=== PATIENT | male | born 1960 | race Caucasian/White ===

== ENCOUNTER → 2017-04-18 | Outpatient (CLI) | payer OTHER ==
--- NOTE | 2017-04-18 14:55 | DIAGNOSTIC IMAGING REPORT ---
LEFT SHOULDER MRI HISTORY: Left shoulder pain. TECHNIQUE: Multiplanar multisequence MRI of the left shoulder was performed without contrast. COMPARISON STUDY: None. FINDINGS: AC joint: Severe AC joint arthropathy demonstrated by joint space narrowing with [id number] articulation, subchondral edema, and large marginal osteophytes. Rotator cuff: The subscapularis and teres minor tendons are intact. Mild edema surrounding the supraspinatus muscle. Partial undersurface tears involving the supraspinatus and infraspinatus tendons. There may be a small focal full-thickness tear of the distal supraspinatus tendon measuring 5 mm. Trace fluid within the subacromial/subdeltoid bursa. Mild fatty atrophy of the supraspinatus and infraspinatus muscles. Labrum: Abnormal signal throughout the superior labrum consistent with a SLAP tear. Biceps: Increased T2 signal in thickening within the proximal long head of the biceps tendon. This is consistent with a tendinopathy. Bones: No fracture dislocation. Mild subchondral marrow edema at the lateral humeral head. This likely due to chronic change. Cartilage: Cartilage spaces are intact. Miscellaneous: No significant joint effusion. IMPRESSION: 1. Partial undersurface tears involving the supra spinous and infraspinatus tendon. There may be a focal 5 mm full-thickness tear at the distal supraspinatus tendon. 2. SLAP tear. 3. Biceps tendinopathy. 4. Severe AC joint arthropathy. Electronically signed by: Elia Hyde M.D. 04/18/2017 2:54 PM Dictated Date/Time: 04/18/2017 2:45 PM
== END | disposition home or self-care (01) ==
LOC: C.MRI 13:40
PROVIDERS: ATTEND Physician Assistant
DX: M25.512 Pain in left shoulder (principal); S46.012A Strain of muscle(s) and tendon(s) of the rotator cuff of left shoulder, initial encounter; S43.432A Superior glenoid labrum lesion of left shoulder, initial encounter; M75.22 Bicipital tendinitis, left shoulder; M19.012 Primary osteoarthritis, left shoulder

== ENCOUNTER 2022-02-11 11:03 | Inpatient (IN) ==
--- NOTE | 2022-01-24 09:28 | PAT Medication Instructions ---
Medication Instructions Date of Service January 24, 2022 Home Medications Beet Root 1,000 mg PO QAM albuterol sulfate 90 mcg/actuation aerosol inhaler 1 inh INHALATION QID PRN amlodipine 5 mg tablet 5 mg PO QAM ascorbic acid (vitamin C) 1,000 mg capsule,extended release 1 cap PO BID cholecalciferol (vitamin D3) 125 mcg (5,000 unit) tablet (Vitamin D3) 125 mcg PO HS cyanocobalamin (vitamin B-12) 5,000 mcg capsule 5,000 mcg PO QAM fluticasone furoate 100 mcg-vilanterol 25 mcg/dose inhalation powder (Breo Ellipta) 1 inh INHALATION DAILY PRN hydrochlorothiazide 25 mg tablet 25 mg PO QAM linagliptin 5 mg tablet (Tradjenta) 5 mg PO QAM losartan 25 mg tablet 25 mg PO QAM montelukast 10 mg tablet (Singulair) 10 mg PO HS omeprazole 20 mg capsule,delayed release 20 mg PO QAM turmeric 400 mg capsule 400 mg PO HS zinc 50 mg capsule 50 mg PO HS STOP taking 2 weeks before surgery Beet Root 1,000 mg PO QAM turmeric 400 mg capsule 400 mg PO HS DO NOT take the morning of surgery ascorbic acid (vitamin C) 1,000 mg capsule,extended release 1 cap PO BID cyanocobalamin (vitamin B-12) 5,000 mcg capsule 5,000 mcg PO QAM hydrochlorothiazide 25 mg tablet 25 mg PO QAM linagliptin 5 mg tablet (Tradjenta) 5 mg PO QAM losartan 25 mg tablet 25 mg PO QAM Take morning of surgery With a small sip of water, OTHERWISE NOTHING TO EAT OR DRINK AFTER MIDNIGHT: albuterol sulfate 90 mcg/actuation aerosol inhaler 1 inh INHALATION QID PRN(use if needed; please bring with you to hospital day of surgery if possible) amlodipine 5 mg tablet 5 mg PO QAM fluticasone furoate 100 mcg-vilanterol 25 mcg/dose inhalation powder (Breo Ellipta) 1 inh INHALATION DAILY PRN(if needed) omeprazole 20 mg capsule,delayed release 20 mg PO QAM Take evening before surgery albuterol sulfate 90 mcg/actuation aerosol inhaler 1 inh INHALATION QID PRN(if needed) ascorbic acid (vitamin C) 1,000 mg capsule,extended release 1 cap PO BID cholecalciferol (vitamin D3) 125 mcg (5,000 unit) tablet (Vitamin D3) 125 mcg PO HS montelukast 10 mg tablet (Singulair) 10 mg PO HS zinc 50 mg capsule 50 mg PO HS Other Notes If you have any questions please call us at [phone] or [phone] or or [phone]
--- NOTE | 2022-01-28 14:03 | Anesthesiology Consultation ---
Date of Service January 28, 2022 Assessment & Plan (1) Encounter for pre-operative examination: Chart Review Chart Review: Acceptable Risk for Surgery (pending surgeon ordered PCP clearance, stress test if available and preop Covid testing results ) and Patient seen in Pre Admission Testing -Awaiting surgeon ordered PCP clearance scheduled 01/31/22 -Attempting to get previous stress test - Check BSG AM DOS Per PAT appt on 01/28/22, patient denies any recent travel or large group activities. No known Covid positive exposures or Covid related symptoms. No known Covid infection in the past 90 days. Pt is vaccinated for Covid. Preop Covid testing scheduled 02/07/22 = will await results. Educated on importance of self quarantining, social distancing and wearing mask in public for the patient one week prior to surgery and after Covid testing done Teaching & Discussion Pre-Anesthesia Teaching/Discussion Notes: Instructed NPO after midnight before surgery,except medications with 15 cc of water. Medication instructions provided according to the PAT guidelines. History Surgery Operation Date: 02/11/22 07:45 Proposed Procedures p L2-L4 Decompression and Fusion, L4-S1 Hardware Removal - Javed Yuan, Height/Weight Height: 5 ft 9 in Weight: 79.7 kg Allergies Allergy/AdvReac Type Severity Reaction Status Date / Time No Known Allergies Allergy Verified 01/23/22 14:05 Medications Home Medications Medication Instructions Recorded Confirmed Last Taken Beet Root 1,000 mg PO QAM 01/23/22 01/23/22 Unknown albuterol sulfate 90 mcg/actuation 1 inh INHALATION QID PRN 01/23/22 01/23/22 Unknown aerosol inhaler amlodipine 5 mg tablet 5 mg PO QAM 01/23/22 01/23/22 Unknown ascorbic acid (vitamin C) 1,000 mg 1 cap PO BID 01/23/22 01/23/22 Unknown capsule,extended release cholecalciferol (vitamin D3) 125 125 mcg PO HS 01/23/22 01/23/22 Unknown mcg (5,000 unit) tablet (Vitamin D3) cyanocobalamin (vitamin B-12) 5,000 mcg PO QAM 01/23/22 01/23/22 Unknown 5,000 mcg capsule fluticasone furoate 100 1 inh INHALATION DAILY PRN 01/23/22 01/23/22 Unknown mcg-vilanterol 25 mcg/dose inhalation powder (Breo Ellipta) hydrochlorothiazide 25 mg tablet 25 mg PO QAM 01/23/22 01/23/22 Unknown linagliptin 5 mg tablet (Tradjenta) 5 mg PO QAM 01/23/22 01/23/22 Unknown losartan 25 mg tablet 25 mg PO QAM 01/23/22 01/23/22 Unknown montelukast 10 mg tablet 10 mg PO HS 01/23/22 01/23/22 Unknown (Singulair) omeprazole 20 mg capsule,delayed 20 mg PO QAM 01/23/22 01/23/22 Unknown release turmeric 400 mg capsule 400 mg PO HS 01/23/22 01/23/22 Unknown zinc 50 mg capsule 50 mg PO HS 01/23/22 01/23/22 Unknown Past Medical History Medical History (Updated 01/29/22 @ 09:49 by Danika Augustine PA-C) Arthritis Asthma LAST USED RESCUE INHALER>UNKNOWN "BEEN SO LONG" Breathing stable Diabetes mellitus, type 2 Stable per patient- BSG usually 100-125 (only checks occ) GERD (gastroesophageal reflux disease) Well controlled and stable History of abnormal electrocardiogram Hx of per patient- had subsequent negative stress test per patient No issues with 01/29/22 PAT EKG Hx of migraines Hypertension 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 Exercise / Class Metabolic Activity II 4-5 Yardwork/Stairs/Walk up hill (one flight of stairs- no chest pain or SOB ) Past Family History Family History Other No family history of adverse response to anesthesia Past Surgical History Surgical History Biceps tendon tear LEFT REPAIRED Fusion of spine LUMBAR H/O left inguinal hernia repair H/O lumbar discectomy H/O right inguinal hernia repair H/O shoulder surgery RT H/O umbilical hernia repair History of colonoscopy History of esophagogastroduodenoscopy (EGD) History of tonsillectomy and adenoidectomy History of tooth extraction Nausea and vomiting after administration of anesthetic agent Past Anesthesia History No Hx of Anesthesia Complications (with exception to PONV ) and No Family Hx of Anesthesia Complications History of PONV No Hx of Motion Sickness and History of PONV (does well with scopolamine patch (ordered scop patch for AM DOS)) Social History Smoking Status: Former smoker tobacco type: cigarettes and smokeless tobacco Do You Dip or Chew Tobacco: No (QUIT 2 YEARS AGO) Smoking End Date: A FEW YEARS AGO Hx Alcohol Use: Yes Alcohol type: hard liquor alcohol intake frequency: a few times a week substance use type: does not use Review of Systems Patient denies chest pain, shortness of breath, dyspnea on exertion, cough, wheezing, palpitations. No hx of seizures, stroke, DE, apnea/snoring. No hx of blood clots or blood transfusions Physical Exam Vital Signs VITALS BP 122/72 P 80 TEMP 98.0 SP02 96% RESP 16 Constitutional no acute distress ENMT Mouth: no TMJ clicking Thyromental Distance: > or= 3.5 Finger Breadths (3.5) Mallampati Class: I Full dentures on top Partial denture on bottom Neck + limited neck extension (minimal ) Respiratory normal respiratory effort; no respiratory distress Auscultation: lungs clear to auscultation bilaterally; no wheezes Breath mildly decreased throughout Cardiovascular Rate/Rhythm: regular rate and regular rhythm Heart Sounds: no murmur Vessels: no carotid bruit Musculoskeletal Spine: + pain with cervical ROM (minimal ) Extremities: extremities normal to inspection Psychiatric Orientation: alert Lab Results Anesthesia Preop Results Results Anesthesia Widget: WBC 10.73 K/uL (4.8-10.8) 01/28/22 Hgb 15.0 g/dL (14.0-18.0) 01/28/22 Hct 44.9 % (42-52) 01/28/22 Plt 263 K/uL (130-400) 01/28/22 Na 139 mmol/L (136-145) 01/28/22 K 3.7 mmol/L (3.5-5.1) 01/28/22 Cl 101 mmol/L (98-107) 01/28/22 CO2 31 mmol/L (21-32) 01/28/22 BUN 11 mg/dl (6-23) 01/28/22 Creat 0.88 mg/dl (0.6-1.4) 01/28/22 Glucose Level 128 mg/dl (70-99(Fasting)) H 01/28/22 PT 11.3 Seconds (9.0-12.0) 01/28/22 PTT 26.1 Seconds (21.0-31.0) 01/28/22 INR 1.1 (0.9-1.1) 01/28/22 HA1c 6.8 % (4.5-5.6) H 01/28/22 Urine Color Yellow 01/28/22 Urine Appearance Clear (Clear) 01/28/22 Urine pH 7.0 (4.5-7.5) 01/28/22 Urine Specific [place] 1.015 (1.000-1.030) 01/28/22 Urine Protein Negative (Negative) 01/28/22 Urine Glucose (UA) Negative (Negative) 01/28/22 Urine Ketones Negative (Negative) 01/28/22 Urine Blood Negative (Negative) 01/28/22 Urine Nitrite Negative (Negative) 01/28/22 Urine Bilirubin Negative (Negative) 01/28/22 Urine Urobilinogen Negative (Negative) 01/28/22 Urine Leukocyte Esterase 2+ (Negative) H 01/28/22 Urine WBC (Auto) 1-5 /hpf (0-5) 01/28/22 Urine RBC (Auto) 0-4 /hpf (0-4) 01/28/22 Urine Hyaline Casts (Auto) 0 /lpf (0-5) 01/28/22 Urine Epithelial Cells (Auto) 5-10 /lpf (0-5) H 01/28/22 Urine Bacteria (Auto) Negative (Negative) 01/28/22 Blood Type A Positive 01/28/22 Antibody Screen NEGATIVE 01/28/22 Testing Electrocardiogram Date: 01/28/22 Findings: + NSR @ (77bpm ) Normal EKG per cardio Chest X-Ray Date: 01/28/22 Findings: + NAD FINDINGS: There may be mild lung hyperexpansion with flattening of the hemidiaphragms. Lungs are clear. There is no pneumothorax or pleural effusion. Cardiac size is normal. Mediastinal contours are normal. There is no evidence for pulmonary edema.
[~2022-02-11 11:03] MED LIST: ACETAMINOPHEN 500 MG TAB PO SCH; CeleBREX 200 MG CAP PO SCH; GABAPENTIN 600 MG DOSE PO SCH; LR 15ML/HR IV SCH; MIDAZOLAM HCL 1 MG/ML 2ML VIAL ONE; SCOPOLAMINE 1 MG TDSY TD ONE; ceFAZolin 2000MG 2,000 MG/15 ML SYR IV SCH; fentaNYL citrate 100 MCG/2 ML VIAL ONE
[2022-02-11] MEDS ORDERED: SCOPOLAMINE 1 MG TDSY TD ONE (11:18)
[2022-02-11] MEDS ORDERED: ONDANSETRON INJ 2 MG/ML 2 ML VIAL IV PRN ×2 (11:46→16:56)
[2022-02-11] MEDS ORDERED: ePHEDrine sulfate 50 MG/ML AMP IV PRN (11:46)
[2022-02-11] MEDS ORDERED: ATROPINE SULFATE 0.1 MG/ML 10ML SYR IV PRN (11:46)
[2022-02-11] MEDS ORDERED: HYDROmorphone INJ 1 MG/ML SYRINGE IV PRN ×2 (11:46→16:56)
--- NOTE | 2022-02-11 11:59 | History & Physical Bridge Note ---
Date of Service February 11, 2022 History & Physical Bridge Note I have examined the patient, reviewed the History & Physical and in the interval since the performance of the History & Physical I have noted the following changes of clinical significance: no changes noted
--- NOTE | 2022-02-11 12:01 | History & Physical Report ---
Date of Service February 11, 2022 Assessment & Plan (1) Neurogenic claudication due to lumbar spinal stenosis: Plan: L2-L4 decompression and fusion, L4-S1 hardware removal History of Present Illness Chief Complaint: Back and leg pain Primary Care Provider: Bennett Vo MD This is a 61-year-old male who presents with chronic persistent back and leg pain. Failing course of nonoperative care is here for surgical invention. Allergies Allergy/AdvReac Type Severity Reaction Status Date / Time No Known Allergies Allergy Verified 02/11/22 11:26 Home Medications Medication Instructions Recorded Confirmed Type Beet Root 1,000 mg PO QAM 01/23/22 02/11/22 History albuterol sulfate 90 mcg/actuation 1 inh INHALATION QID PRN 01/23/22 02/11/22 History aerosol inhaler amlodipine 5 mg tablet (Norvasc) 5 mg PO QAM 01/23/22 02/11/22 History ascorbic acid (vitamin C) 1,000 mg 1 cap PO BID 01/23/22 02/11/22 History capsule,extended release cholecalciferol (vitamin D3) 125 125 mcg PO HS 01/23/22 02/11/22 History mcg (5,000 unit) tablet (Vitamin D3) cyanocobalamin (vitamin B-12) 5,000 mcg PO QAM 01/23/22 02/11/22 History 5,000 mcg capsule fluticasone furoate 100 1 inh INHALATION DAILY PRN 01/23/22 02/11/22 History mcg-vilanterol 25 mcg/dose inhalation powder (Breo Ellipta) hydrochlorothiazide 25 mg tablet 25 mg PO QAM 01/23/22 02/11/22 History linagliptin 5 mg tablet (Tradjenta) 5 mg PO QAM 01/23/22 02/11/22 History losartan 25 mg tablet 25 mg PO QAM 01/23/22 02/11/22 History montelukast 10 mg tablet 10 mg PO HS 01/23/22 02/11/22 History (Singulair) omeprazole 20 mg capsule,delayed 20 mg PO QAM 01/23/22 02/11/22 History release turmeric 400 mg capsule 400 mg PO HS 01/23/22 02/11/22 History zinc 50 mg capsule 50 mg PO HS 01/23/22 02/11/22 History Past Med/Surg History Medical History (Updated 02/11/22 @ 12:00 by Javed Yuan, DO) Arthritis Asthma LAST USED RESCUE INHALER>UNKNOWN "BEEN SO LONG" Breathing stable Diabetes mellitus, type 2 Stable per patient- BSG usually 100-125 (only checks occ) GERD (gastroesophageal reflux disease) Well controlled and stable History of abnormal electrocardiogram Hx of per patient- had subsequent negative stress test per patient No issues with 01/29/22 PAT EKG Hx of migraines Hypertension 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 Surgical History Biceps tendon tear LEFT REPAIRED Fusion of spine LUMBAR H/O left inguinal hernia repair H/O lumbar discectomy H/O right inguinal hernia repair H/O shoulder surgery RT H/O umbilical hernia repair History of colonoscopy History of esophagogastroduodenoscopy (EGD) History of tonsillectomy and adenoidectomy History of tooth extraction Nausea and vomiting after administration of anesthetic agent Family History Other No family history of adverse response to anesthesia Social History Smoking Status: Former smoker Smoking End Date: A FEW YEARS AGO; Second Hand Exposure: Yes; Do You Dip or Chew Tobacco: No (QUIT 2 YEARS AGO); Hx Alcohol Use: Yes Alcohol type: hard liquor Preferred Language: Urdu 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
[2022-02-11] MEDS ORDERED: BUPIVACAINE/EPINEPHRINE 0.25% 1:200,000 30 ML VIAL ONE (12:09)
[2022-02-11] MEDS ORDERED: ceFAZolin 330 MG/ML 1 GM VIAL ONE (12:09)
[2022-02-11] MEDS ORDERED: PROMETHAZINE HCL 6.25 MG in SODIUM CHLORIDE 0.9% 50 ML IV PRN (12:14)
[2022-02-11] MEDS ORDERED: HYDROmorphone INJ 2 MG/ML SYR/VIAL ONE (13:14)
[2022-02-11] MEDS ORDERED: GLYCOPYRROLATE 0.2 MG/ML VIAL ONE (13:15)
[2022-02-11] MEDS ORDERED: ePHEDrine sulfate 50 MG/ML AMP ONE (13:15)
[2022-02-11] MEDS ORDERED: LIDOCAINE 2% 2 ML VIAL/AMP(20MG/ML) INFIL ONE (13:15)
[2022-02-11] MEDS ORDERED: PHENYLEPHRINE HCL 10 MG/ML VIAL ONE (13:15)
[2022-02-11] MEDS ORDERED: PROPOFOL IV EMULSION 10 MG/ML 20 ML VIAL IV ONE (13:15)
[2022-02-11] MEDS ORDERED: ROCURONIUM BROMIDE 10 MG/ML 5 ML VIAL IV ONE ×3 (13:15→15:35)
[2022-02-11] MEDS ORDERED: LARYING-O-JET KIT (LTA) ONE (13:15)
[2022-02-11] MEDS ORDERED: NEOSTIGMINE METHYLSULFATE 1 MG/ML 10ML VIAL ONE (13:15)
[2022-02-11] MEDS ORDERED: ONDANSETRON INJ 2 MG/ML 2 ML VIAL ONE (13:15)
[2022-02-11] MEDS ORDERED: diphenhydrAMINE 50 MG/ML VIAL ONE (13:15)
[2022-02-11] MEDS ORDERED: DEXAMETHASONE SOD INJ 4 MG/ML VIAL ONE (13:15)
[2022-02-11] MEDS ORDERED: FLOSEAL HEMOSTATIC MATRIX 10ML TOP ONE (13:20)
[2022-02-11] MEDS ORDERED: ALBUMIN HUMAN 5% 12.5 GM/250 ML VIAL IV ONE (14:36)
--- NOTE | 2022-02-11 15:35 | Operative Report ---
Post Operative Report Pre & Post Diagnosis Operation Date: 02/11/22 12:25 Pre-Op Diagnosis: Neurogenic claudication due to lumbar spinal stenosis Post-Op Diagnosis: Neurogenic claudication due to lumbar spinal stenosis I identified the patient and participated in the time-out.: Yes Procedure Operation Date: 02/11/22 12:25 Actual Procedures 1 removal of posterior instrumentation L4-L5 L5-S1. #2 exploration of fusion L4-L5 L5-S1. #3 lumbar decompression with bilateral medial facetectomies and foraminotomies L1-L2, L2-L3 and L3-L4. #4 posterior spinal fusion L2-L3 L3-4. #5 placement posterior instrumentation L2-S1. #6 interbody fusion L2-L3 L3-L4. #7 placement of Spira cage 13 x 26 mm at L2-L3 and 12 x 26 mm at L3-L4. #8 placement locally harvested morselized autograft in the posterior gutters. #9 placement of I factor model V toss in the interbody space and posterior lateral gutters. Surgeon Javed Yuan, [employer] Kavitha Rao Estimated Blood Loss 800 Findings Consistent with Post-Op Diagnosis Specimens None Indications This is a 61-year-old male who presents above-mentioned diagnosis after failing course of nonoperative care is here for the above-mentioned procedure. Description of Procedure Patient was met with identified informed consent obtained. Patient was then taken to the operative suite underwent a patient placed in a prone position the Moose palpation frame. All bony prominences well-padded eyes inspected to ensure no external pressure placed upon the. This point the lumbar spine was prepped and draped in normal sterile fashion. Sharp dissection with the assistance of Bovie cautery was performed down to and exposing the lamina and transverse processes of L to L3 and instrumentation at L4-L5 and S1 levels bilaterally. Then proceeded to move the hardware bilaterally explore the fusion mass noting it to be mature and intact. Then performed a complete laminectomy of L3 L2 and partial laminectomy of L1 including bilateral medial facetectomies and foraminotomies addressing severe spinal stenosis. Pedicle screws were then placed in L2-L3-L4 and S1 levels bilaterally with assistance of fluoroscopy and the properly sized anitha placed. By way of a transit foraminal approach on the left complete discectomy of L3-L4 was performed endplates curetted to subcortical bleeding bone and a 12 x 26 mm spiral cage filled I factor tapped in position. Then proceeded to L2-L3 and again by way of a transforaminal portion left complete discectomy performed endplates curetted to subcortical bleeding bone and a 13 x 26 mm spiral cage filled with I factor tapped in position. The proper size rods were then locked into position bilaterally. The transverse processes of L2-L3-L4 burred to subcortically bone. I factor combined with V toss and locally harvested morselized autograft was then placed in the posterior gutters. 15 round CASEY drain inserted. The incision was then closed with 1 Vicryl the fascia 2-0 Vicryl subcutaneously and 4 Monocryl for final skin closure. Steri-Strip sterile dressings placed. Patient waken taken PACU stable condition. Please note spinal cord monitoring was utilized at the procedure no changes noted. Lastly Kavitha Rao was present at the entire procedure and while the patient positioning complex portions of the surgery and fascial closure. I attest to the content of the Intraoperative Record and any orders documented therein. Any exceptions are noted below.
--- NOTE | 2022-02-11 15:47 | Fluoroscopy Report ---
FL lumbar spine 2-3V CLINICAL HISTORY: L4-S1 REMOVE HARDWARE L2-4 DFI TECHNIQUE: 3 views were obtained with the C-arm in the OR with the above procedure. Total fluoroscopy time was 19.2 seconds. Total skin dose was 12.4 mGy. Comparison: None available at the time of this dictation. FINDINGS/IMPRESSION: Intraoperative images were obtained of L4-S1 hardware removal and discectomy and fusion of L2-L4. Please correlate with intraoperative fluoroscopy and operative report. ACT 112: Negative or not required by law. Electronically signed by: Cipriano Brooks M.D. 02/11/2022 3:45 PM
[2022-02-11] MEDS: fentaNYL citrate 100 MCG/2 ML VIAL IV PRN ×4 (16:09→16:24)
--- NOTE | 2022-02-11 16:23 | Anesthesiology Progress Note ---
Date of Service February 11, 2022 Anesthesia Post Procedure Vital Signs Vital Signs: Temp Pulse Resp BP Pulse Ox 02/11/22 16:20 73 18 147/79 H 100 02/11/22 16:10 103 H 18 140/88 100 02/11/22 16:00 70 16 117/66 100 02/11/22 15:51 36.5 C 73 16 116/68 100 02/11/22 11:34 36.7 C 81 18 148/93 H 96 Pain Intensity Left Leg: Pain Intensity: 5 Lower Back: Pain Intensity: 6 Transfer of Care Handoff Completed per policy Notes Mental Status: alert / awake / arousable Patient Amnestic to Procedure: Yes Nausea / Vomiting: adequately controlled Pain: adequately controlled Airway Patency, RR, SpO2: stable & adequate BP & HR: stable & adequate Hydration State: stable & adequate Anesthetic Complications: no major complications apparent and Pt Satisfied with anesthetic care
[2022-02-11] MEDS ORDERED: NALOXONE HCL 0.4 MG/1 ML VIAL/CARP IV PRN (16:56)
[2022-02-11] MEDS ORDERED: ACETAMINOPHEN 500 MG TAB PO PRN (16:56)
[2022-02-11] MEDS ORDERED: ONDANSETRON 4 MG OD TAB PO PRN (16:56)
[2022-02-11] MEDS ORDERED: bisacodyL 10 MG SUPP PR PRN (16:56)
[2022-02-11] MEDS ORDERED: FAMOTIDINE 20 MG TAB PO PRN (16:56)
[2022-02-11] MEDS ORDERED: hydrOXYzine HCl 25 MG TAB PO PRN (16:56)
[2022-02-11] MEDS ORDERED: SOD PHOSPHATE/SOD BIPHOSPHATE ENEMA 132 ML BTL PR PRN (16:56)
[2022-02-11] MEDS ORDERED: MAGNESIUM HYDROXIDE SUSP 30 ML UDC PO PRN (16:56)
[2022-02-11] MEDS ORDERED: DO NOT ADMINISTER FLU VACCINE PRN (16:56)
[2022-02-11] MEDS ORDERED: LORazepam 0.5 MG TAB PO PRN (16:56)
[2022-02-11] MEDS ORDERED: diphenhydrAMINE Capsule 25 MG CAP PO PRN (16:56)
[2022-02-11] MEDS ORDERED: DO NOT ADMINISTER PNEUMOCOCCAL VACCINE PRN (16:56)
[2022-02-11] MEDS ORDERED: LORazepam 2 MG/1 ML VIAL IV PRN (16:56)
[2022-02-11] MEDS ORDERED: FLUTICASONE/VILANTEROL 100/25MCG 14 PUFFS/INHALER INH PRN (16:56)
[2022-02-11] MEDS ORDERED: METOCLOPRAMIDE HCL INJ 5 MG/ML 2 ML VIAL IV PRN (16:56)
[2022-02-11] MEDS ORDERED: ACETAMINOPHEN 1,000 MG/100 ML VIAL IV PRN (16:56)
[2022-02-11] MEDS ORDERED: traMADol HCL 50 MG TABLET PO PRN (16:56)
[2022-02-11] MEDS ORDERED: HYDROmorphone INJ 0.5 MG/0.5 ML SYR IV PRN (16:56)
[2022-02-11] MEDS ORDERED: ALUMINUM/MAGNESIUM SUSP 30 ML UDC PO PRN (16:56)
[2022-02-11] MEDS ORDERED: PROMETHAZINE HCL 12.5 MG in SODIUM CHLORIDE 0.9% 50 ML IV PRN (16:56)
[2022-02-11] MEDS ORDERED: ALBUTEROL HFA 8 GM INHALER INH PRN (16:56)
[2022-02-11] MEDS: CHECK SCOPOLAMINE PATCH PLACEMENT SCH (17:09)
[2022-02-11] MEDS: LACTATED RINGER'S 1,000 ML IV SCH (17:19)
[2022-02-11] MEDS ORDERED: PHARMACY GLYCEMIC MGMT CONSULT PRN (17:24)
[2022-02-11] MEDS ORDERED: GLUCOSE 40% GEL 15 GM TUBE PO PRN (17:30)
[2022-02-11] MEDS ORDERED: INSULIN GLARGINE SOLOSTAR 100 UNITS/ML 3 ML PEN SC ONE (17:30)
[2022-02-11] MEDS ORDERED: GLUCAGON FOR INJ 1 MG VIAL IM PRN (17:30)
[2022-02-11] MEDS ORDERED: GLUCOSE 10 TABS/TUBE PO PRN (17:30)
[2022-02-11] MEDS ORDERED: CARBOHYDRATES FOR HYPOGLYCEMIA PO PRN (17:30)
[2022-02-11] MEDS ORDERED: DEXTROSE 50% 50 ML SYRINGE IV PRN (17:30)
[2022-02-11] MEDS: INSULIN ASPART PER UNIT SC SCH ×2 (17:56→20:38)
--- NOTE | 2022-02-11 18:10 | Hospitalist Progress Note ---
Date of Service February 11, 2022 Assessment & Plan (1) Hypertension: Plan: stable. hold HCTZ and losartan for now until AM labs. (2) Asthma: Plan: stable, no sob. prn inhaler ordered. continue home breo (3) DVT prophylaxis: Plan: per orthopedics Admission and Anticipated Discharge Date Admission Date: February 11, 2022 Subjective feeling good overall. no sob. no complaints. liquid diet went down well/ tast ed good. Review of Systems Review of Systems: All systems reviewed & are unremarkable except as noted in HPI & below Physical Exam Physical Exam: gen aaox3 pleasant nad heent nc at mmm cardio distant lungs diminished somewhat but clear no r/r/w good effort no accessory muscles skin no rashes no pallor or icterus Results & Data Results & Data ([facility]) Vital Signs (Past 12 Hours) Vital Signs Temp Pulse Resp BP BP Pulse Ox 02/11/22 17:55 95 H 18 131/74 99 02/11/22 16:50 98.6 F 75 18 135/75 100 02/11/22 16:40 97.5 F L 91 H 17 123/71 96 02/11/22 16:30 87 17 132/78 97 02/11/22 16:20 73 18 147/79 H 100 02/11/22 16:10 103 H 18 140/88 100 02/11/22 16:00 70 16 117/66 100 02/11/22 15:51 97.7 F 73 16 116/68 100 02/11/22 11:34 98.1 F 81 18 148/93 H 96 PG Care Time/CCT Total # of Minutes Spent Total Time Spent with Patient: Total time spent is greater than 50% in coordination of care (as documented) at patient's floor/unit and/or counseling patient: Coding Level of Care Code 47106 Subseq Hosp Care Lvl 2 Diagnoses Hypertension I10 Asthma J45.909 DVT prophylaxis Z29.9
[2022-02-11] MEDS: ASCORBIC ACID 500 MG TAB PO SCH (20:21)
[2022-02-11] MEDS: CHOLECALCIFEROL 5,000 UNITS 125 MCG TAB PO SCH (20:21)
[2022-02-11] MEDS: ZINC SULFATE 220 MG CAPSULE PO SCH (20:22)
[2022-02-11] MEDS: DOCUSATE SODIUM/SENNA 50/8.6MG TAB PO SCH (20:22)
[2022-02-11] MEDS: MONTELUKAST SODIUM 10 MG TABLET PO SCH (20:22)
[2022-02-11] MEDS: ceFAZolin 2000MG 2,000 MG/15 ML SYR IV SCH (20:32)
[2022-02-12] MEDS ORDERED: INSULIN ASPART PER UNIT SC SCH
[2022-02-12] MEDS: CHECK SCOPOLAMINE PATCH PLACEMENT SCH ×2 (00:57→08:25)
[2022-02-12] MEDS: oxyCODONE HCL IR 5 MG TAB (IMMEDIATE RELEASE) PO PRN ×5 (01:01→21:15)
[2022-02-12] MEDS: LACTATED RINGER'S 1,000 ML IV SCH (02:27)
[2022-02-12] MEDS: ceFAZolin 2000MG 2,000 MG/15 ML SYR IV SCH (05:09)
[2022-02-12] MEDS: POLYETHYLENE (MIRALAX) 17 GM PACK PO SCH ×3 (05:10→17:09)
[2022-02-12 05:52] LABS: Hematocrit (blood only) 38.4 % (42-52); Hemoglobin 12.8 g/dL (14.0-18.0); Immature Granulocytes # (auto) 0.06 K/uL (0.00-0.02); Immature Granulocytes % (auto) 0.3 %; Lymphocytes # (auto) 1.35 K/uL (1.2-3.4); Lymphocytes % (auto) 6.9 %; Mean Corpuscular Hgb Conc 33.3 g/dL (32-36); Mean Corpuscular Volume 86.9 fL (80-100); Mean Platelet Volume 9.5 fL (7.4-10.4); Monocytes # (auto) 1.42 K/uL (0.11-0.59); Monocytes % (auto) 7.3 %; Neutrophils # (auto) 16.62 K/uL (1.4-6.5); Neutrophils % (auto) 85.5 %; Platelet Count 275 K/uL (130-400); RDW Coefficient of Variation 13.2 % (11.5-14.5); RDW Standard Deviation 42.5 fL (36.4-46.3); Red Blood Count 4.42 M/uL (4.7-6.1); White Blood Count 19.45 K/uL (4.8-10.8)
[2022-02-12 06:23] LABS: BUN Creatinine Ratio 13.3 (10-20); Calcium 8.9 mg/dl (8.5-10.1); Creatinine Clr Calc Pharmacy 100.8 ml/min; Est GFR (African American) 113.2 ml/min; Est GFR (Non-African American) 97.6 ml/min; Potassium 3.9 mmol/L (3.5-5.1)
[2022-02-12] MEDS: INSULIN ASPART PER UNIT SC SCH ×4 (08:24→21:13)
[2022-02-12] MEDS: FLUTICASONE/VILANTEROL 100/25MCG 14 PUFFS/INHALER INH SCH (08:27)
[2022-02-12] MEDS: PANTOprazole 40 MG TAB PO SCH (08:28)
[2022-02-12] MEDS: dexAMETHasone 6 MG in SYRINGE 0 ML IV SCH (08:28)
[2022-02-12] MEDS: amLODIPine BESYLATE 5 MG TAB PO SCH (08:28)
[2022-02-12] MEDS: CYANOCOBALAMIN (B-12) 2,500 MCG TABLET SL SCH (08:28)
[2022-02-12] MEDS: ASCORBIC ACID 500 MG TAB PO SCH ×2 (08:28→21:11)
[2022-02-12] MEDS ORDERED: ALBUT/IPRATROP 3MG/0.5MG NEB 3 ML VIAL NEB SCH (08:30)
[2022-02-12] MEDS ORDERED: hydroCHLOROthiazide 25 MG TAB PO SCH (09:00)
[2022-02-12] MEDS ORDERED: INSULIN GLARGINE SOLOSTAR 100 UNITS/ML 3 ML PEN SC ONE (09:00)
[2022-02-12] MEDS ORDERED: LOSARTAN POTASSIUM 25 MG TAB PO SCH (09:00)
[2022-02-12] MEDS ORDERED: ALBUTEROL HFA 8 GM INHALER INH PRN (09:00)
[2022-02-12] MEDS: LOSARTAN POTASSIUM 25 MG TAB PO SCH (09:26)
--- NOTE | 2022-02-12 10:42 | Hospitalist Progress Note ---
Date of Service February 12, 2022 Assessment & Plan (1) Asthma: (2) Hypertension: (3) DVT prophylaxis: Plan: 61 year old male w/ asthma, hypertension, T2DM here for decompression and fusion surgery L2-L4. Asthma: -Continue home breo-ellipta -PRN albuterol for SoB -Scheduled duoneb q8h, PRN q3h for wheezing. Hypertension: -AM BMP w/ good renal function and electrolytes WNL. -Can restart home HCTZ and losartan. -Continue to monitor vitals. DVT Prophylaxis: per orthopedics F/E/N/GI: Carb consistent T2DM Code status: Full Dispo: medically stable for discharge when stable w orthopedic surgery. hospitalist team will sign off at this time, but please do not hesitate to contact if we can be of further assistance Admission and Anticipated Discharge Date Admission Date: February 11, 2022 Supervising Physician Co-Signing Physician Notes I personally examined the patient and verified all wisdom points of history and exam, discussed case, and agree with decision making with Dr Crzu feeling good overall - notes that rhonchi/wheeze earlier was largely mucous. does have pretty common/pretty typical morning cough. on discussion notes asthma was dx'd by "specialist" (w/u sounds to have included PFTs and chest imaging, his description sounds c/w pulmonary eval) - notes that he takes the breo rarely - typically in a small cluster of days and then he's good for a long time and doesn't need inhaler at all vitals noted nad heent nc at mmm lungs cta b/l no rrw somewhat diminished quite c/w yesterday's exam good effort HTN - volume status stable, ok to resume home meds asthma - breo, for now nebs since was rhonchorus this AM - but sounds to be within his normal pattern. no dyspnea, on room air medically stable, will sign off, let me know if i can be of any further assistance. Subjective Patient doing well today. When asked about wheezing, patient states he has a history of asthma and was told by the nurse they can do breathing treatments for some audible wheezing he was having earlier. He denies any fevers, chills, shortness of breath, chest pain. Patient is having some lower back pain but he said the pain is better than before the surgery and that he is overall happy with the improvement. Review of Systems Constitutional: as per Subjective / HPI Physical Exam Constitutional: WD/WN, vitals as above Eyes: PERRL, conjunctivae normal, anicteric sclerae Respiratory: Mild expiratory rhonchi bilaterally. Gastrointestinal (Abdomen): normal bowel sounds, soft, nontender, no hepatosplenomegaly Psychiatric: A+Ox3, euthymic affect Results & Data Results & Data ([facility]) Vital Signs (Past 12 Hours) Vital Signs Temp Pulse Resp BP Pulse Ox 02/12/22 09:31 85 18 97 02/12/22 09:25 92 H 162/91 H 02/12/22 07:53 37.1 C 77 16 121/70 98 02/12/22 04:11 36.6 C 72 18 119/72 98 02/11/22 22:46 36.8 C 98 H 18 113/72 98 Resident Activity Tracking Resident Involvement: Resident Care Provided Care Provided: Adult [facility]
[2022-02-12] MEDS ORDERED: ALBUT/IPRATROP 3MG/0.5MG NEB 3 ML VIAL NEB PRN (11:30)
--- NOTE | 2022-02-12 13:43 | Orthopedic Progress Note ---
Date of Service February 12, 2022 Assessment & Plan (1) Neurogenic claudication due to lumbar spinal stenosis: Plan: At this time we will continue physical therapy monitor his CASEY operatively discharge home in the next few days. Admission and Anticipated Discharge Date Admission Date: February 11, 2022 Subjective Back pain controlled leg symptoms markedly improved Physical Exam Physical Exam: Patient is good strength testing. Appears comfortable. Results & Data ([facility]) Vital Signs (Past 12 Hours) Vital Signs Temp Pulse Resp BP Pulse Ox 02/12/22 12:54 37.1 C 91 H 16 120/79 94 02/12/22 09:31 85 18 97 02/12/22 09:25 92 H 162/91 H 02/12/22 07:53 37.1 C 77 16 121/70 98 02/12/22 04:11 36.6 C 72 18 119/72 98
--- NOTE | 2022-02-12 13:56 | Pharmacy Report ---
Pharmacy Glycemic Short Note 2 - Date of Service February 12, 2022 - Glycemic Short BSG Results (Last 24 hours): 02/11/22 02/11/22 02/11/22 15:57 17:20 20:33 Glucose POC Glucose 143 H 172 H 196 H 02/12/22 02/12/22 02/12/22 00:10 05:22 08:08 Glucose 140 H POC Glucose 162 H 189 H 02/12/22 11:52 Glucose POC Glucose 112 H OUTPATIENT ANTIDIABETIC REGIMEN: * Tradjenta * HbA1C = 6.8% ASSESSMENT: * Mr Bullock is a 61 y/o M s/p spinal surgery. He received dexamethasone 12 mg IV in the OR yesterday plus is started on dexamethasone 6 mg IV daily x 3 days. Patient is only on oral diabetic medications at home. * Patient given Lantus 30 units (0.4 units/kg) yesterday plus Novolog weight- based stress of 3. * Will continue with Lantus full weight-based stress of 2 and Novolog for now. Lantus 30 units was effective at lowering BSG but will reduce dose slightly since less steroids being given today. * Hold Tradjenta. PLAN FOR INPATIENT GLYCEMIC CONTROL: * Hold outpatient oral diabetes medications * Basal insulin * Lantus 25 units SQ daily with dexamethasone 6 mg IV daily * Bolus insulin * NovoLog per scale ACHS or Q6hrs while NPO * Goal Range: Low 110 mg/dL - High 140 mg/dL * Correction Factor: 25 mg/dL/unit * Nutritional / Prandial insulin per carb ratio of 1 unit per 7 grams CHO consumed
[2022-02-12] MEDS: ALBUT/IPRATROP 3MG/0.5MG NEB 3 ML VIAL NEB SCH ×2 (14:40→22:10)
--- NOTE | 2022-02-12 18:36 | Billing Data ---
Date of Service February 12, 2022 Coding Level of Care Code 66952 Subseq Hosp Care Lvl 2
[2022-02-12] MEDS: CHOLECALCIFEROL 5,000 UNITS 125 MCG TAB PO SCH (21:11)
[2022-02-12] MEDS: MONTELUKAST SODIUM 10 MG TABLET PO SCH (21:12)
[2022-02-12] MEDS: DOCUSATE SODIUM/SENNA 50/8.6MG TAB PO SCH (21:12)
[2022-02-12] MEDS: ZINC SULFATE 220 MG CAPSULE PO SCH (21:12)
[2022-02-13] MEDS: POLYETHYLENE (MIRALAX) 17 GM PACK PO SCH ×4 (00:05→17:50)
[2022-02-13] MEDS: oxyCODONE HCL IR 5 MG TAB (IMMEDIATE RELEASE) PO PRN ×3 (06:14→17:50)
[2022-02-13] MEDS: ALBUT/IPRATROP 3MG/0.5MG NEB 3 ML VIAL NEB SCH (07:01)
[2022-02-13] MEDS: dexAMETHasone 6 MG in SYRINGE 0 ML IV SCH (07:38)
[2022-02-13] MEDS: ASCORBIC ACID 500 MG TAB PO SCH ×2 (07:39→21:28)
[2022-02-13] MEDS: PANTOprazole 40 MG TAB PO SCH (07:39)
[2022-02-13] MEDS: amLODIPine BESYLATE 5 MG TAB PO SCH (07:39)
[2022-02-13] MEDS: LOSARTAN POTASSIUM 25 MG TAB PO SCH (07:39)
[2022-02-13] MEDS: FLUTICASONE/VILANTEROL 100/25MCG 14 PUFFS/INHALER INH SCH (07:39)
[2022-02-13] MEDS: CYANOCOBALAMIN (B-12) 2,500 MCG TABLET SL SCH (07:39)
[2022-02-13] MEDS: INSULIN ASPART PER UNIT SC SCH ×4 (08:43→21:29)
[2022-02-13] MEDS ORDERED: INSULIN GLARGINE SOLOSTAR 100 UNITS/ML 3 ML PEN SC ONE (09:00)
--- NOTE | 2022-02-13 09:53 | Orthopedic Progress Note ---
Date of Service February 13, 2022 Assessment & Plan (1) Neurogenic claudication due to lumbar spinal stenosis: Plan: At this time continue physical therapy monitor his CASEY output anticipate discharge home tomorrow. Admission and Anticipated Discharge Date Admission Date: February 11, 2022 Subjective Patient's back pain is controlled leg symptoms markedly improved Physical Exam Physical Exam: Patient has good strength testing peers comfortable. Results & Data ([facility]) Vital Signs (Past 12 Hours) Vital Signs Temp Pulse Resp BP Pulse Ox 02/13/22 07:10 36.8 C 75 16 132/75 95 02/13/22 07:01 83 18 95
[2022-02-13] MEDS ORDERED: ALBUT/IPRATROP 3MG/0.5MG NEB 3 ML VIAL NEB PRN (10:05)
[2022-02-13] MEDS: CHOLECALCIFEROL 5,000 UNITS 125 MCG TAB PO SCH (21:28)
[2022-02-13] MEDS: MONTELUKAST SODIUM 10 MG TABLET PO SCH (21:29)
[2022-02-13] MEDS: DOCUSATE SODIUM/SENNA 50/8.6MG TAB PO SCH (21:29)
[2022-02-13] MEDS: ZINC SULFATE 220 MG CAPSULE PO SCH (21:30)
[2022-02-14] MEDS: oxyCODONE HCL IR 5 MG TAB (IMMEDIATE RELEASE) PO PRN ×2 (01:05→08:35)
[2022-02-14] MEDS: POLYETHYLENE (MIRALAX) 17 GM PACK PO SCH ×2 (01:06→06:46)
--- NOTE | 2022-02-14 08:21 | Discharge Summary ---
Date of Service February 14, 2022 Admission HPI Per Admitting Provider This is a 61-year-old male who presents with chronic persistent back and leg pain. Failing course of nonoperative care is here for surgical invention. Principal Diagnosis Lumbar spinal stenosis with neurogenic claudication Discharge Data Allergies Allergy/AdvReac Type Severity Reaction Status Date / Time No Known Allergies Allergy Verified 02/11/22 11:26 Consultations 02/11/22 16:56 Consult Hospitalist Routine Procedures Performed Operation Date: 02/11/22 12:25 Actual Procedures p L2-L4 Decompression and Fusion, Spinal Cord Monitoring(Not Applicable) - Javed Yuan DO s L4-S1 Hardware Removal(Not Applicable) - Javed Yuan DO Ordered Studies 02/11/22 12:25 FL lumbar spine 2-3V Routine Hospital Course (1) Neurogenic claudication due to lumbar spinal stenosis: Patient 1 multilevel lumbar decompression fusion tolerated this well stable orthopedic for possibly. Postop day 1 he was up and ambulating progress postop #2 on postop day #3 CASEY drainage decreased appropriate. Excellent strength testing. Pain well controlled. Separately discharged home. Discharge orders instructions from the chart for further review. Total Time Total Time Spent Total Time Spent (In Minutes): 20 minutes Discharge Plan Discharge Items Patient Disposition: Home - Self-Care Reason For Visit: POSTOP Discharge Diagnosis: Lumbar spinal stenosis with neurogenic claudication Activity: As commented below Non-emergency contact: Primary Care Provider Call non-emergency contact if: you have any medication questions Follow-up/Referrals: Bennett Vo MD [Primary Care Provider] - Diet: Regular Addtl Attending Provider Instructions: ACTIVITY RECOMMENDATIONS: SELF CARE INSTRUCTIONS AFTER THORACIC/LUMBAR FUSIONS 1. You may walk to your tolerance. It is good exercise for your legs and back. Expect some back and intermittent leg aches and pains. 2. You may perform "counter-top" level activities (make a sandwich, cassy with a project, etc.). 3. No bending or lifting of more than 10 pounds or back twisting of any nature (roll like a log when turning in bed). 4. You may ride in a car for 20-30 minutes at a time. No driving until after your first visit with your doctor. 5. Frequent changes of position and restricting sitting to 30 minutes at a time will help limit the amount of back spasms and stiffness you may experience. 6. You may discontinue the use of ambulatory aids (cane, crutches, etc.) once your strength and confidence allow. 7. You may quill machine tender the shower and let water strike your incision when you arrive home at least once daily. Do not take a tub bath, sit in a hot tub or go into a swimming pool until after your first recheck in the office. SPECIAL CARE INSTRUCTIONS: VERY IMPORTANT TO READ AND REVIEW A. Your surgical incision has been closed with a cosmetic suture under the skin that will dissolve in about 6 weeks. In 14 days, you can use a pair of clean scissors and cut the suture that is left outside of the skin at the ends of your incision. 1. The small skin tapes can be removed 7 days after surgery if they have not fallen off by that point. 2. You may keep the wound open to air as much as possible to promote healing after post-op day number 5 unless told otherwise by your doctor. 3. If you think the wound looks like it is becoming infected (redness or worsening drainage) and/or you are experiencing fever, chill or worsening back pain and muscle spasms, contact the office so that we may evaluate you as soon as possible. B. Complications are uncommon, but please contact us if you have any signs or symptoms of: 1. wound infection (fever higher than 102.5 degrees F, redness, separation of wound, drainage, or increasing pain from the incision) 2. blood clots in legs (pain, swelling, redness and warmth in legs) 3. urinary tract infection (fever higher than 102.5 degrees F, burning upon urination or increased frequency of urination) 4. nerve problems (inability to walk on your toes or heels, numbness, loss of bowel or bladder control) 5. any other symptoms that concern you C. Please call the office at if you have any concerns or questions about your operation or recovery. D. No smoking! Smoking drastically decreases the chance of a solid fusion. E. Do not take any anti-inflammatory medications (Indocin, Advil, Motrin, Aspirin, Naprosyn, etc.) as these may inhibit the chance of a solid fusion. Tylenol is okay to take for pain. MANAGING PAIN AFTER SPINAL SURGERY 1. Narcotic medication is intended for short-term use and will be provided for surgical pain. Surgical pain usually lasts for a period of 4-6 weeks. Narcotic medication includes Percocet, Vicodin, Darvocet, Tylenol #3 or Lortab. 2. Longer-term pain is more appropriately treated with non-narcotic medication such as Tylenol ES. 3. Muscle spasm is not appropriately treated with narcotics. Muscle relaxers such as Soma, Flexeril or Skelaxin can be used along with Tylenol ES. 4. Remember that we all live with some "aches and pains". This is not unusual or uncommon after an injury or as we get older. a. Back pain is expected and may include muscle spasms for 4 to 6 weeks after surgery. The pain should gradually improve. If the pain worsens for no apparent reason, please contact the office. b. Intermittent leg pain may also be experienced and should not be concerned about unless it worsens for no apparent reason. If so, please contact the office. 5. We will provide appropriate medication within the normal guidelines of their prescribed use. We will also be very cautious and aware of potential abuse and extended duration of patients' medication needs. a. Pain medications are for your comfort and to assist with sleep and rest so that the tissue can heal. They are not provided in order to return to normal activity and should not be used through the day. To do so or worsening pain at night can result from ongoing tissue damage and development of tolerance to the prescribed medicine. 6. Please allow 2-3 days to process refills. Prescriptions will not be mailed but must be picked up at the office. FOLLOW UP VISIT: Keep your scheduled follow-up appointment. Any questions, please call the office at . Pending Studies at Discharge: No Stand-Alone Forms: [facility], Smoking Cessation Medications and DC Order Prescriptions: New tramadol 50 mg tablet 50 mg PO Q6H PRN (Reason: pain, moderate) Qty: 30 RF: 0 ondansetron 4 mg Tablet,Disintegrating 4 mg PO Q6H PRN (Reason: nausea and vomiting) Qty: 30 RF: 0 oxycodone 5 mg tablet 5 mg PO Q6H PRN (Reason: pain, severe) Qty: 30 RF: 0 Continued amlodipine [Norvasc] 5 mg Tablet 5 mg PO QAM RF: 0 losartan 25 mg Tablet 25 mg PO QAM RF: 0 omeprazole 20 mg Capsule,Delayed Release(Dr/Ec) 20 mg PO QAM RF: 0 montelukast [Singulair] 10 mg Tablet 10 mg PO HS RF: 0 hydrochlorothiazide 25 mg Tablet 25 mg PO QAM RF: 0 albuterol sulfate 90 mcg/actuation Hfa Aerosol Inhaler 1 inh INHALATION QID PRN (Reason: SHORT OF BREATH) RF: 0 ascorbic acid (vitamin C) 1,000 mg Capsule, Extended Release 1 cap PO BID RF: 0 zinc 50 mg Capsule 50 mg PO HS RF: 0 cholecalciferol (vitamin D3) [Vitamin D3] 125 mcg (5,000 unit) Tablet 125 mcg PO HS RF: 0 Tradjenta 5 mg Tablet 5 mg PO QAM RF: 0 fluticasone furoate-vilanterol [Breo Ellipta] 100-25 mcg/dose Blister With Device 1 inh INHALATION DAILY PRN (Reason: SHORT OF BREATH) RF: 0 turmeric 400 mg Capsule 400 mg PO HS RF: 0 cyanocobalamin (vitamin B-12) 5,000 mcg Capsule 5,000 mcg PO QAM RF: 0 Beet Root 1,000 mg PO QAM RF: 0 Discharge Orders: Discharge Order (Routine); Ordered 02/14/22 Ordered By: Javed Yuan Admission Data Admit Date/Time: 02/11/22 15:39 Attending Provider: Javed Yuan Admit Provider: Javed Yuan Primary Care Provider: Bennett Vo Other Providers: Laurent Ortiz
[2022-02-14] MEDS: dexAMETHasone 6 MG in SYRINGE 0 ML IV SCH (08:32)
[2022-02-14] MEDS: FLUTICASONE/VILANTEROL 100/25MCG 14 PUFFS/INHALER INH SCH (08:36)
[2022-02-14] MEDS: amLODIPine BESYLATE 5 MG TAB PO SCH (08:36)
[2022-02-14] MEDS: CYANOCOBALAMIN (B-12) 2,500 MCG TABLET SL SCH (08:36)
[2022-02-14] MEDS: LOSARTAN POTASSIUM 25 MG TAB PO SCH (08:37)
[2022-02-14] MEDS: PANTOprazole 40 MG TAB PO SCH (08:37)
[2022-02-14] MEDS: ASCORBIC ACID 500 MG TAB PO SCH (08:37)
[2022-02-14] MEDS: INSULIN ASPART PER UNIT SC SCH (08:39)
== END 2022-02-14 12:33 | disposition home or self-care (01) | DRG 455 ==
LOC: ASU 11:03 → 3E 15:39